=== PATIENT | female | born 1935 | race African-American/Black ===

== ENCOUNTER 2017-07-13 09:10 | Outpatient (CLI) | payer MEDICARE ==
[2017-07-13 11:50] LABS: ALT (SGPT) 8 U/L (8-55); AST (SGOT) 14 U/L (5-34); Albumin 3.9 g/dL (3.4-4.8); Alkaline Phosphatase 78 U/L (40-150); Anion Gap 13 mmol/L (10-20); BUN (Urea Nitrogen) 16 mg/dL (9.8-20.1); Bilirubin, Total 0.8 mg/dL (0.2-1.2); Calc. Creatinine Clearance 0 mL/min (70-130); Calcium 9.1 mg/dL (7.8-10.44); Carbon Dioxide 26 mmol/L (23-31); Cardiac Risk 2.6 (Less than 4.5); Chloride 104 mmol/L (98-107); Cholesterol 213 mg/dl (< 200 Desired); Estimated GFR-MDRD 52; Globulin 3.1 g/dL (2.4-3.5); Glucose 84 mg/dL (83-110); HDL Cholesterol 81 mg/dL (>60 Neg Risk); LDL Cholesterol, Calculated 118 mg/dL; Potassium 4.1 mmol/L (3.5-5.1); Sodium 139 mmol/L (136-145); Triglycerides 70 mg/dL (Less than 150)
[2017-07-13 12:04] LABS: Bilirubin Negative (Negative); Blood, Urine Negative (Negative); Clarity Clear (Clear); Glucose, Urine (Dipstick) Negative (Negative); Leukocyte Moderate (Negative); Nitrite Negative (Negative); Protein, Urine (Dipstick) Negative (Neg-Trace); Urobilinogen 0.2 mg/dL (0.2-1.0)
[2017-07-13 12:22] LABS: Hemoglobin A1c 5.6 % (4.0-6.0)
[2017-07-13 12:30] LABS: Bacteria/HPF 1+ HPF (None Seen); RBC/HPF 0-3 HPF (0-3); WBC/HPF 21-50 HPF (0-3)
[2017-07-13 14:27] LABS: #Basophils 0.1 thou/uL (0.0-0.2); #Eosinphils 0.3 thou/uL (0.0-0.7); #Lymphocytes 1.3 thou/uL (1.20-3.40); #Monocytes 0.2 thou/uL (0.11-0.59); #Neutrophils 1.3 thou/uL (1.40-6.50); %Basophils 2.9 % (0.0-1.0); %Eosinophils 8.3 % (0.0-10.0); %Lymphocytes 39.8 % (21.0-51.0); %Monocytes 6.8 % (0.0-10.0); %Neutrophils 42.1 % (42.0-75.0); Hemoglobin 12.1 g/dL (12.0-16.0); Mean Corpuscular HGB CONC 30.4 g/dL (32.0-36.0); Mean Corpuscular Hemoglobin 26.2 pg (27.0-31.0); Mean Corpuscular Volume 86.3 fl (81.0-99.0); Mean Platelet Volume 7.6 fL (7.4-10.4); Platelet Count 299 thou/uL (130-400); RBC Distribution Width 13.1 % (11.5-14.5); Red Blood Cell (RBC) Count 4.62 mill/uL (4.20-5.40); White Blood Cell (WBC) Count 3.2 thou/uL (4.8-10.8)
[2017-07-13 14:28] LABS: PLT Morphology Comment Appears Adequate
[2017-07-13 17:34] LABS: Creatinine, Urine 91.37 mg/dL (47-110); Microalbumin Urine 2.1 mg/dL (0.5-50.0)
== END 2017-07-13 09:11 | disposition home or self-care (01) ==
LOC: NAVSJIPCSP 09:10
PROVIDERS: ATTEND Internal Medicine
DX: C50.919 Malignant neoplasm of unspecified site of unspecified female breast (principal); E78.5 Hyperlipidemia, unspecified; E11.22 Type 2 diabetes mellitus with diabetic chronic kidney disease; I12.9 Hypertensive chronic kidney disease with stage 1 through stage 4 chronic kidney disease, or unspecified chronic kidney disease; N18.3 Chronic kidney disease, stage 3 (moderate); E03.9 Hypothyroidism, unspecified; N39.0 Urinary tract infection, site not specified; Z79.899 Other long term (current) drug therapy
CPT/HCPCS: 36415; 80053; 80061; 81003; 81015; 82043; 83036; 84443; 85025; 87086

== ENCOUNTER 2018-06-16 11:14 | Emergency (ER) | payer MEDICARE, OTHER ==
[2018-06-16] MEDS ORDERED: Lidocaine 1% w/Epinephrine 1:100K 30 ML VIAL ONE (12:54)
--- NOTE | 2018-06-16 13:00 | CT ---
CT OF BRAIN PERFORMED WITHOUT CONTRAST ENHANCEMENT: HISTORY: The patient fell and hit forehead. COMPARISON: 04/14/18 exam. FINDINGS: The ventricular and cisternal system shows some generalized atrophy. There is decreased attenuation of the periventricular white matter consistent with some chronic ischemic white matter change. Small calcification is seen along the inner table of the skull along the left posterior frontal parietal r egion. This could potentially represent a tiny meningioma. A frontal scalp hematoma is seen. No un derlying fracture. Mastoid air cells and visualized sinuses are clear. IMPRESSION: No acute intracranial abnormalities. POS: [facility]
[2018-06-16] MEDS ORDERED: Bacitracin Zinc 1 Packet ONE ×2 (13:14→13:20)
== END 2018-06-16 14:04 | disposition home or self-care (01) ==
LOC: NAV ERS 11:14
DX: S01.81XA Laceration without foreign body of other part of head, initial encounter (principal); E78.5 Hyperlipidemia, unspecified; E11.22 Type 2 diabetes mellitus with diabetic chronic kidney disease; N18.3 Chronic kidney disease, stage 3 (moderate); F17.220 Nicotine dependence, chewing tobacco, uncomplicated; Z79.899 Other long term (current) drug therapy; Z79.82 Long term (current) use of aspirin; W19.XXXA Unspecified fall, initial encounter
CPT/HCPCS: 12011; 70450; J2001

== ENCOUNTER 2018-06-23 09:19 | Emergency (ER) | payer MEDICARE, OTHER | END 2018-06-23 10:07 | disposition home or self-care (01) | LOC: NAV ERS 09:19 | DX: S01.81XD Laceration without foreign body of other part of head, subsequent encounter (principal); I12.9 Hypertensive chronic kidney disease with stage 1 through stage 4 chronic kidney disease, or unspecified chronic kidney disease; E11.22 Type 2 diabetes mellitus with diabetic chronic kidney disease; N18.3 Chronic kidney disease, stage 3 (moderate); E78.5 Hyperlipidemia, unspecified; E03.9 Hypothyroidism, unspecified; F17.220 Nicotine dependence, chewing tobacco, uncomplicated; Z79.82 Long term (current) use of aspirin; Z79.899 Other long term (current) drug therapy; W18.30XD Fall on same level, unspecified, subsequent encounter ==

== ENCOUNTER 2019-06-06 08:50 | Outpatient (CLI) | payer MEDICARE, OTHER ==
[2019-06-06] MEDS ORDERED: Iopamidol 370 76% 100 ML VIAL ONE (09:00)
--- NOTE | 2019-06-06 13:18 | CT ---
CT ABDOMEN AND PELVIS WITH ORAL AND IV CONTRAST: Date: 06/06/19 HISTORY: Colon cancer. Breast cancer. Weight loss. COMPARISON: 09/26/08. FINDINGS: The lung bases are unremarkable. The patient is post cholecystectomy. Prominence of the biliary ducts is likely due to reservoir effect. No hepatic mass is seen. The spleen, pancreas, adrenal glands, an d right kidney are normal. There are small cysts in the left kidney. No free air, free fluid, or lymphadenopathy seen in the abdomen or pelvis. The small bowel loops are not abnormally dilated. There are vascular calcifications without evidence of aneurysmal dilatation o f the abdominal aorta. There are degenerative changes in the spine. No osteolytic or osteoblastic les ions are seen. The patient is post hysterectomy. There is focal narrowing in the rectosigmoid, suspic ious for an applecore mass. IMPRESSION: Colonoscopy is recommended to evaluate the probable applecore mass in the rectosigmoid. POS: OFF
== END 2019-06-06 08:51 | disposition home or self-care (01) ==
LOC: NAV CT 08:50
PROVIDERS: ATTEND Internal Medicine
DX: Z01.812 Encounter for preprocedural laboratory examination (principal); C18.6 Malignant neoplasm of descending colon; R31.0 Gross hematuria
CPT/HCPCS: 36415; 74177; 82565; Q9967

== ENCOUNTER 2020-05-12 19:56 | Emergency (ER) | payer MEDICARE, OTHER ==
[2020-05-12] MEDS ORDERED: Adacel (T-DAP) 0.5 ML SYRINGE ONE (20:24)
[2020-05-12] MEDS ORDERED: Bacitracin 1 PK ONE (20:24)
[2020-05-12] MEDS ORDERED: cloNIDine 0.1 MG TAB ONE ×2 (20:24→22:01)
== END 2020-05-12 23:06 | disposition home or self-care (01) ==
LOC: NAV ERS 19:56
DX: S81.812A Laceration without foreign body, left lower leg, initial encounter (principal); I10 Essential (primary) hypertension; E11.9 Type 2 diabetes mellitus without complications; E03.9 Hypothyroidism, unspecified; E78.5 Hyperlipidemia, unspecified; E78.00 Pure hypercholesterolemia, unspecified; F17.220 Nicotine dependence, chewing tobacco, uncomplicated; Z79.899 Other long term (current) drug therapy; Z79.82 Long term (current) use of aspirin; W45.0XXA Nail entering through skin, initial encounter
CPT/HCPCS: 90471; 90715

== ENCOUNTER 2020-05-18 15:25 | Emergency (ER) | payer MEDICARE, OTHER ==
[2020-05-18] MEDS ORDERED: cloNIDine 0.1 MG TAB ONE (15:56)
== END 2020-05-18 16:40 | disposition home or self-care (01) ==
LOC: NAV ERS 15:25
DX: I12.9 Hypertensive chronic kidney disease with stage 1 through stage 4 chronic kidney disease, or unspecified chronic kidney disease (principal); E11.22 Type 2 diabetes mellitus with diabetic chronic kidney disease; N18.3 Chronic kidney disease, stage 3 (moderate); E03.9 Hypothyroidism, unspecified; E78.5 Hyperlipidemia, unspecified; E78.00 Pure hypercholesterolemia, unspecified; F17.220 Nicotine dependence, chewing tobacco, uncomplicated; Z79.82 Long term (current) use of aspirin; Z79.899 Other long term (current) drug therapy
CPT/HCPCS: 99283

== ENCOUNTER 2020-08-23 15:59 | Emergency (ER) | payer MEDICARE, OTHER | END 2020-08-23 16:45 | disposition home or self-care (01) | LOC: NAV ERS 15:59 | DX: I12.9 Hypertensive chronic kidney disease with stage 1 through stage 4 chronic kidney disease, or unspecified chronic kidney disease (principal); N18.30 Chronic kidney disease, stage 3 unspecified; E11.22 Type 2 diabetes mellitus with diabetic chronic kidney disease; R60.0 Localized edema; E03.9 Hypothyroidism, unspecified; E78.5 Hyperlipidemia, unspecified; E78.00 Pure hypercholesterolemia, unspecified; F17.220 Nicotine dependence, chewing tobacco, uncomplicated; Z85.3 Personal history of malignant neoplasm of breast; Z85.038 Personal history of other malignant neoplasm of large intestine; Z79.82 Long term (current) use of aspirin; Z79.899 Other long term (current) drug therapy | CPT/HCPCS: 99283 ==

== ENCOUNTER 2022-06-19 10:34 | Emergency (ER) | payer MEDICARE, MEDICAID | END 2022-06-19 11:18 | disposition home or self-care (01) | LOC: NAV ERS 10:34 | DX: M54.2 Cervicalgia (principal); G89.29 Other chronic pain; I12.9 Hypertensive chronic kidney disease with stage 1 through stage 4 chronic kidney disease, or unspecified chronic kidney disease; E11.22 Type 2 diabetes mellitus with diabetic chronic kidney disease; N18.30 Chronic kidney disease, stage 3 unspecified; F17.220 Nicotine dependence, chewing tobacco, uncomplicated; E03.9 Hypothyroidism, unspecified; E78.5 Hyperlipidemia, unspecified; E78.00 Pure hypercholesterolemia, unspecified; Z85.038 Personal history of other malignant neoplasm of large intestine; Z85.3 Personal history of malignant neoplasm of breast; Z79.82 Long term (current) use of aspirin; Z79.899 Other long term (current) drug therapy | CPT/HCPCS: 99283 ==

== ENCOUNTER 2024-01-13 10:05 | Outpatient (CLI) | payer OTHER, MEDICAID | END 2024-01-13 10:06 | disposition home or self-care (01) | LOC: NAV RAD 10:05 | PROVIDERS: ATTEND Family Medicine | DX: J06.9 Acute upper respiratory infection, unspecified (principal) | CPT/HCPCS: 71046 ==